=== PATIENT | male | born 1935 | race Caucasian/White ===

== ENCOUNTER 2022-12-04 16:38 | Inpatient (IN) | payer OTHER ==
[~2022-12-04] VITALS: Ht 167.6 cm; Wt 79.2 kg
[~2022-12-04 16:38] MED LIST: ROSU5 PO
[2022-12-04 17:00] LABS: BASOPHILS ABSOLUTE AUTO 0.05 K/mm3 (0.00-0.23); BASOPHILS PERCENT AUTO 1 % (0-2); EOSINOPHILS ABSOLUTE AUTO 0.18 K/mm3 (0.00-0.68); EOSINOPHILS PERCENT AUTO 3 % (0-6); Hemoglobin 13.8 g/dL (13.5-17.5); IMMATURE GRAN ABSOLUTE AUTO 0.02 K/mm3 (0.00-0.10); IMMATURE GRAN PERCENT AUTO 0 % (0-1); LYMPHOCYTES ABSOLUTE AUTO 1.06 K/mm3 (0.84-5.20); LYMPHOCYTES PERCENT AUTO 17 % (21-46); MONOCYTES ABSOLUTE AUTO 0.45 K/mm3 (0.16-1.47); MONOCYTES PERCENT AUTO 7 % (4-13); Mean Corpuscular HGB 31.8 pg (26.0-34.0); Mean Corpuscular HGB Conc 34.5 g/dL (31.5-36.5); Mean Corpuscular Volume 92 fL (80-100); Mean Platelet Volume 10.9 fL (9.1-12.4); NEUTROPHILS ABSOLUTE AUTO 4.65 K/mm3 (1.96-9.15); NEUTROPHILS PERCENT AUTO 73 % (41-73); Platelet Count 206 K/mm3 (150-400); RDW Coefficient Variation 12.5 % (11.7-14.2); RDW Standard Deviation 42.5 fL (35.1-46.3); Red Blood Cell Count 4.34 M/mm3 (4.30-5.90); White Blood Cell Count 6.41 K/mm3 (4.00-11.30)
[2022-12-04 17:17] LABS: Alanine Aminotransfer (ALT/SGP 22 U/L (12-78); Albumin, Blood 3.8 g/dL (3.4-5.0); Albumin/Globulin Ratio 1.2 (0.8-1.8); Alk Phos 88 U/L (50-136); Anion Gap 5 mmol/L (6-16); Aspartate Aminotrans (AST/SGOT 22 U/L (12-37); Bilirubin, Total 0.3 mg/dL (0.1-1.0); Blood Urea Nitrogen 27 mg/dL (8-24); Bun/Creatinine Ratio 25.7 (12.0-20.0); CHOL/HDL RATIO 3.8; CO2, Blood 25 mmol/L (21-32); Calcium, Blood 8.9 mg/dL (8.5-10.1); Chloride, Blood 103 mmol/L (98-108); Cholesterol 156 mg/dL (50-200); Creatinine, Blood 1.05 mg/dL (0.60-1.20); Globulin, Blood 3.1 g/dL (2.2-4.0); Glomerular Filtration Rate 70 (60-); Glucose, Blood 182 mg/dL (70-99); HDL Cholesterol 41 mg/dL (>39); LDL/HDL RATIO 1.7; Low Density Lipoprotein Chol 69 mg/dL (0-110); Potassium, Blood 3.5 mmol/L (3.5-5.5); Sodium, Blood 133 mmol/L (136-145); Total Protein, Blood 6.9 g/dL (6.4-8.2); Triglycerides 231 mg/dL (30-160); Very Low Density Lipoprot Chol 46 mg/dL (6-32)
[2022-12-04 22:13] VITALS: BP 149/82
--- NOTE | 2022-12-05 02:30 | NUR ---
SHIFT MARGARITA. PT ARRIVED TO FLOOR BY ALLI PT ABLE TO STAND AND AMBULATE. PT IS ALERT AND ORIENTED AND UP INDEPENDENT AT [facility] WITH OUT ASSISTIVE DEVICES PER PT. PT ABLE TO PUFF OUT CHEEKS STICK OUT TOUNGE NO DEVIATION. VISION INTACT PT DENIED NUMBESS OR TINGLING. GRASPS EQUAL BUT RIGHT PUSH PULL WEAAKER THAN LEFT. PT UNABLE TO LIFT UP ARM WITH OUT USING LEFT ARM TO PROGRAM PLANNER RIGHT. EQUAL STRENGTH TO FEET AND LEGS WITH NO NOTABLE WEAKNESS OR DIFFRENCES. PT IS ALERT AND ORIENTED X 4. CALL LIGHT IN REACH.
[2022-12-05 02:35] VITALS: BP 150/82
[2022-12-05 05:07] LABS: Bun/Creatinine Ratio 21.1 (12.0-20.0); Calcium, Blood 8.7 mg/dL (8.5-10.1); Potassium, Blood 4.1 mmol/L (3.5-5.5)
[2022-12-05 07:45] VITALS: BP 146/75
[2022-12-05 15:02] VITALS: BP 155/83
--- NOTE | 2022-12-05 16:28 | NUR ---
SHIFT SUMMARY PT AWAKE DURING SHIFT REPORT, RESTING QUIETLY IN BED. A&O, PLEASANT AND CO-OP. ADMITTED FOR POSSIBLE CVA. NO DEFICITS NOTED, EXCEPT FOR R ARM WEAKNESS AND UNABLE TO RAISE NORMAL. ECHO AND MRI DONE TODAY. DR PALMER IN TO SEE PT THIS AM AND AGAIN THIS AFTERNOON TO REVIEW TEST RESULTS. PT WANTING TO D/C HOME TODAY, BUT WILL STAY ANOTHER NIGHT, PER DR PALMER. PT'S TO RM THIS AM AND CONTINUES TO BE AT BS. PT ABLE TO WORK WITH PT/OT. SBA TO INDEPENDENT TO [facility] [place] NEEDED. PT ABLE TO CALL APPROPRIATELY. DENIES FURTHER NEEDS AT THIS TIME.
[2022-12-05 19:37] VITALS: BP 140/70
[2022-12-06 02:41] VITALS: BP 135/73
--- NOTE | 2022-12-06 06:20 | NUR ---
Shift Summary Pt AOx4, 1 SBA to BR, no notable deficits except R arm. Eyes are PERRLA. Rcvind NS @ 125. Plans to D/C today. No c/o of pain or nausea.
[2022-12-06 07:26] VITALS: BP 136/70
[2022-12-06] MEDS ORDERED: CLOP75 PO (11:27)
[2022-12-06] MEDS ORDERED: ASPI81CH PO (11:27)
[2022-12-06] MEDS ORDERED: TOPROL XL25 MG PO (11:28)
[2022-12-06] MEDS ORDERED: LIDO700A20 TOP (11:28)
--- NOTE | 2022-12-06 15:30 | NUR ---
SHIFT SUMMARY AND DISCHARGE PATIENT INDEPENDENT IN THE ROOM. PATIENT ALERT AND COOPERATIVE WITH CARE. PATIENT DISCHARGING HOME WITH OUTPATIENT OT. IV DC'D. TELE REMOVED. PATIENT TAKEN OUT VIA WHEELCHIAR. PATIENT CONTINUES TO HAVE SOME R ARM WEAKNESS AND SLIGHT NEGLECT TO HAND.
== END 2022-12-06 11:47 | disposition home or self-care (01) | DRG 65 ==
LOC: ER 16:38 → MEDS 16:39 → ENPENDDIS 12-06 10:29 → MEDS 12-06 11:47
PROVIDERS: Emergency Medicine; Nurse Practitioner Acute Care; ADMIT Internal Medicine
DX: I63.9 Cerebral infarction, unspecified (principal); E87.1 Hypo-osmolality and hyponatremia; G81.91 Hemiplegia, unspecified affecting right dominant side; K21.9 Gastro-esophageal reflux disease without esophagitis; E78.00 Pure hypercholesterolemia, unspecified; M19.011 Primary osteoarthritis, right shoulder; I10 Essential (primary) hypertension; E86.1 Hypovolemia; Z85.46 Personal history of malignant neoplasm of prostate; Z79.899 Other long term (current) drug therapy
CPT/HCPCS: 36415; 70450; 70551; 73030; 80048; 80053; 80061; 83036; 84484; 85025; 93005; 93010; 93306; 93880; 96360; 96361; 96372; 97110-CQ; 97116; 97116-CQ; 97162; 97166; 97530; 97535; 99285-25; A9270; G0378; J1650; J7030

== ENCOUNTER 2024-04-19 12:50 | Day surgery (SDC) | payer OTHER ==
[~2024-04-19] VITALS: Ht 167.6 cm; Wt 82.4 kg
[~2024-04-19 12:50] MED LIST changes: +ASPI81CH PO; +Balanced Salt Epinephrine Irrigation Solution 500 mL IR SCH; +CLOP75 PO; +Diazepam 2 MG Tab PO PRN; +Diazepam 2 MG Tab PO SCH; +LIDO700A20 TOP; +Lidocaine HCl/Pf 1% 5 ML VIAL XX SCH; +Moxifloxacin HCL 0.5 MG/0.1 ML 0.4MLSYR LEFTEYE SCH; +Ondansetron 4 MG SoluTab MM PRN; +PHENYLEPHRINE\\TROPICAMIDE\\TETRACAINE OPHTHALMIC DILATING SOLN LEFTEYE PRN; +Povidone-Iodine 450 DROP/30 ML Solution LEFTEYE SCH; +Povidone-Iodine 450 DROP/30 ML Solution ONE; +REPATHA SU140 MG/1 M; +TOPROL XL25 MG PO; +Tetracaine HCl/Pf 0.5% Opth Soln 4 ml ONE
[2024-04-19] MEDS ORDERED: Diazepam 5 MG Tab ONE (13:09)
[2024-04-19] MEDS ORDERED: Diazepam 2 MG Tab ONE (13:09)
--- NOTE | 2024-04-19 13:23 | NUR ---
04/19/24 1323 Martha Sheffield PT CURRENTLY RATES ANXIETY 0/10.
[2024-04-19] MEDS ORDERED: Nexium40 MG PO (13:29)
[2024-04-19] MEDS ORDERED: Erythromycin 0.5% Opth Oint 1 gm ONE (14:00)
[2024-04-19 14:13] VITALS: BP 125/69
--- NOTE | 2024-04-19 14:56 | NUR ---
04/19/24 1456 Mickie Gupta PATIENT HAS SCANT BLEEDING FROM EYE- DR COREAS NOTIFIED. NO ORDERS RECEIVED. DISCUSSED WITH PATIENT AND . REVIEWED DISCHARGE INSTRUCTIONS AND FOLLOW UP WITH PATIENT AND . BOTH VERBALIZED UNDERSTANDING AND READINESS FOR DISCHARGE. PATIENT VOIDED X1 PRIOR TO DISCHARGE.
== END 2024-04-19 14:50 | disposition home or self-care (01) ==
LOC: ORSCSDS 12:50
PROVIDERS: Student in an Organized Health Care Education/Training Program
PROC: 08DK3ZZ Extraction of Left Lens, Percutaneous Approach (ICD-10-PCS; principal; 2024-04-19 14:30)
DX: H25.812 Combined forms of age-related cataract, left eye (principal); Z96.1 Presence of intraocular lens; I10 Essential (primary) hypertension; G47.33 Obstructive sleep apnea (adult) (pediatric); H35.3132 Nonexudative age-related macular degeneration, bilateral, intermediate dry stage; Z85.46 Personal history of malignant neoplasm of prostate; Z86.73 Personal history of transient ischemic attack (TIA), and cerebral infarction without residual deficits; Z79.82 Long term (current) use of aspirin; Z79.899 Other long term (current) drug therapy
CPT/HCPCS: A9270; V2632